=== PATIENT | female | born 1950 | race Caucasian/White ===

== ENCOUNTER → 2020-01-12 12:31 | Outpatient (CLI) | payer MEDICARE, OTHER, SELFPAY ==
--- NOTE | 2020-01-12 12:37 | CT_ITS ---
STUDY: CT MAXILLOFACIAL SINUSES REASON FOR EXAM: Female, 69 years old. Sinusitis, yash navigation protocol. RADIATION DOSAGE (If Supplied By Facility): CTDIvol = ( 33.06 ) mGy, DLP = ( 854.51 ) mGycm TECHNIQUE: The patient was scanned in a multi detector CT scanner. High resolution axial imaging was performed without the administration of intravenous contrast material. Sagittal and coronal images were reconstructed. Individualized dose optimization techniques were used for this CT. COMPARISON: None. FINDINGS: FRONTAL SINUSES: Normal aeration, without mucosal inflammatory disease. ETHMOIDAL SINUSES: Normal aeration, without mucosal inflammatory disease. MAXILLARY SINUSES: Minimal mucosal thickening at the bases of the maxillary sinuses with patent maxillary ostia and infundibulum. SPHENOIDAL SINUSES: Normal aeration, without mucosal inflammatory disease. There is patency of the bilateral maxillary infundibuli with normal uncinate processes, ethmoid bullae, and hiatus semilunaris. Normal bilateral middle turbinates. Normal bilateral inferior turbinates. Mild right nasal septal deviation, 4 mm. Small right nasal septal spur junction of the perpendicular plate and volume are impacting the base of the right inferior turbinate. There is patency of the bilateral nasal airways. The visualized osseous structures are normal. The visualized bilateral orbital contents are normal. CT/Sinus/Facial Bone IMPRESSION: Minimal mucosal thickening at the bases of the maxillary sinuses. Otherwise clear paranasal sinuses. 4 mm right nasal septal deviation with a small septal spur to the right at the level of the perpendicular plate and vomer. Electronically Signed: Bri Parsons MD at 16:01 EST , Service support ,
== END ==
PROVIDERS: Referring Provider Otolaryngology; Visit Provider Otolaryngology
DX: J32.8 Other chronic sinusitis (principal)
CPT/HCPCS: 70486

== ENCOUNTER → 2020-01-26 11:47 | Outpatient (CLI) | payer MEDICARE, OTHER, SELFPAY ==
--- NOTE | 2020-01-26 11:53 | EKG12_ITS ---
Test Reason : PRE OP Blood Pressure : / mmHG Vent. Rate : 075 BPM Atrial Rate : 075 BPM P-R Int : 154 ms QRS Dur : 090 ms QT Int : 390 ms P-R-T Axes : 071 -68 080 degrees QTc Int : 435 ms Normal sinus rhythm Left anterior fascicular block Poor R wave progression Abnormal ECG Confirmed by MELVA STARR, ENRIQUETA ([id number]), marketing editor WILDER BUSTAMANTE ([id number]) on 01/27/2020 11:18:17 AM Referred By: Anthony Tellez Confirmed By:ENRIQUETA FRYE MD
[2020-01-26 13:40] LABS: Hematocrit 45.4 % (37-47); Hemoglobin 14.5 g/dL (12.0-15.0); Mean Corp Hgb Conc 31.9 g/dL (32-36); Mean Corpuscular Hgb 30.4 pg (27.0-32.0); Mean Corpuscular Volume 95.2 fL (81-99); Mean Platelet Vol. 11.4 fl (6.2-12.0); Platelet Count 278 K/mm3 (150-450); RBC Distribution Width CV 12.3 % (11.6-14.6); RBC Distribution Width SD 43.6 fl (35.1-43.9); Red Blood Count 4.77 M/mm3 (4.2-5.4); White Blood Count 6.9 K/mm3 (4.4-11.0)
[2020-01-26 14:16] LABS: Anion Gap 5 (5-15); BUN 19 mg/dL (7-18); BUN/Creat Ratio 27.1 RATIO (10-20); Calcium,Total 9.6 mg/dL (8.5-10.1); Chloride 109 mmol/L (98-107); EST Glomerular Filtration Rate 88 mL/min (>60); Est Glom Filt Rate - Afr Amer 106 mL/min (>60); Glucose 96 mg/dL (74-106); Potassium 4.5 mmol/L (3.5-5.1); Sodium Level 142 mmol/L (136-145)
== END ==
PROVIDERS: Referring Provider Otolaryngology; Visit Provider Otolaryngology
DX: Z01.818 Encounter for other preprocedural examination (principal); Z11.59 Encounter for screening for other viral diseases
CPT/HCPCS: 36415; 80048; 85027; 87635; 93005; C9803; U0003

== ENCOUNTER → 2020-02-01 15:47 | Outpatient (CLI) | payer MEDICARE, OTHER, SELFPAY ==
--- NOTE | 2020-02-01 08:32 | NASAL_PTH ---
PATIENT: ROMA CRAWFORD LOC: [facility] U#:[id number] AGE/SX: 74/F ROOM: RE02/01/[address]: Dr. Willian Tellez MD : [id number] BED: DIS: SPEC #: [id number] RECD: 02/01/20 15:05 STATUS: SHANNON DEANN #: [id number] BE: 02/01/20 08:[address]: Willian Tellez DEPT: SURGICAL PATHOLOGY RECD BY: Vaishali Kee ENTERED: 02/02/20 09:42 SP TYPE: NASAL SPEC OTHR DR: STACY Tissues: Nasal septum, NOS Procedures: Surgery Specimen Level III HEADER OPERATION: Lysis of intranasal synechia, ethmoidectomy, maxillary antrostomy PRE-OP DIAGNOSIS: Chronic sinusitis TISSUE SUBMITTED: Sinus contents MICROSCOPIC DIAGNOSIS Sinus contents: Fragments of respiratory mucosa with mild acute and chronic inflammation and bone. SJ:ian 02/07/20 MICROSCOPIC DESCRIPTION Slides are reviewed. GROSS DESCRIPTION Received is one container labeled with the patient's name and not further designated. The specimen consists of multiple irregular fragments of solomon soft tissue mixed with fragments of bone that in aggregate measure 2 x 1 x 0.2 cm. The specimen is totally submitted in one cassette after decalcification. / SJ:ian 02/02/20 TC:3 CPT: 49720, 18182
== END ==
PROVIDERS: Visit Provider Otolaryngology
DX: J32.9 Chronic sinusitis, unspecified (principal)
CPT/HCPCS: 88304

== ENCOUNTER → 2020-03-13 15:18 | Outpatient (CLI) | payer MEDICARE, OTHER, SELFPAY | PROVIDERS: Referring Provider Otolaryngology; Visit Provider Otolaryngology | DX: J32.8 Other chronic sinusitis (principal) | CPT/HCPCS: 87070; 87077; 87186; 87205 ==

== ENCOUNTER → 2020-06-22 13:41 | Outpatient (CLI) | payer MEDICARE, OTHER, SELFPAY ==
--- NOTE | 2020-06-22 13:50 | CT_ITS ---
STUDY: CT MAXILLOFACIAL SINUSES REASON FOR EXAM: Female, 69 years old. SINUSITIS RADIATION DOSAGE (If Supplied By Facility): CTDIvol = ( 28.14 ) mGy, DLP = ( 781.37 ) mGycm TECHNIQUE: The patient was scanned in a multi detector CT scanner. High resolution axial imaging was performed without the administration of intravenous contrast material. Sagittal and coronal images were reconstructed. Individualized dose optimization techniques were used for this CT. COMPARISON: Comparison is made with prior examination dated 01/12/2020. FINDINGS: FRONTAL SINUSES: Normal aeration, without mucosal inflammatory disease. ETHMOIDAL SINUSES: Mild degree of mucosal thickening of the ethmoid sinuses. MAXILLARY SINUSES: Minimal degree of mucosal thickening of the left maxillary sinus inferiorly. SPHENOIDAL SINUSES: Normal aeration, without mucosal inflammatory disease. There is patency of the bilateral maxillary infundibuli with normal uncinate processes, ethmoid bullae, and hiatus semilunaris. There are gabriela bullosa of the bilateral turbinates. Normal bilateral inferior turbinates. Normal midline nasal septum. There is patency of the bilateral nasal airways. The visualized osseous structures are normal. The visualized bilateral orbital contents are normal. CT/Sinus/Facial Bone IMPRESSION: Mild degree mucosal thickening of the ethmoid sinuses. Electronically Signed: John Mcduffie MD at 14:15 EDT , Service support ,
== END ==
PROVIDERS: Referring Provider Otolaryngology; Visit Provider Otolaryngology
DX: J32.8 Other chronic sinusitis (principal)
CPT/HCPCS: 70486

== ENCOUNTER → 2021-09-18 | Outpatient (CLI) | payer MEDICARE, SELFPAY ==
--- NOTE | 2021-09-18 12:47 | MRI_ITS ---
STUDY: MRI RIGHT FOREFOOT WITHOUT CONTRAST REASON FOR EXAM: Right foot pain along the plantar surface of the distal metatarsals since May, sesamoid removal. TECHNIQUE: Standardized fat and water weighted pulse sequences were obtained in all 3 orthogonal planes. COMPARISON: Radiograph report 07/30/2021. FINDINGS: Normal metatarsophalangeal joint of the hallux. Normal fibular sesamoid (inversion recovery sagittal image 9). Status post resection of the tibial sesamoid. Normal interphalangeal joint of the hallux. Normal proximal and distal phalanges of the great toe. Normal medial and lateral heads of the flexor hallucis brevis tendons. Normal flexor and extensor hallucis longus tendons. Normal second through fifth metatarsophalangeal (MTP) joints. Normal interphalangeal joints of the second through fifth toes. Normal proximal, middle and distal phalanges of the second through fifth toes. Normal first through fourth intermetatarsal spaces. Normal flexor and extensor tendons of the second through fifth toes. Normal metatarsals without bone edema or stress fracture. Normal intrinsic muscles of the forefoot. There are pressure lesions in the subcutis adipose space plantar to the first metatarsophalangeal joint (T1 short axis image 21) and plantar to the fifth metatarsophalangeal joint (T1 short axis image 18). MRI/Lower Ext/No Jt/w/o IMPRESSION: Pressure lesions in the subcutis adipose space plantar to the first and fifth metatarsophalangeal joints. Status post resection of the tibial sesamoid without demonstrated abnormality of the fibular sesamoid. Electronically Signed: Ramesh Kohli MD at 9:28 EDT ,
--- NOTE | 2021-09-18 13:38 | MRI_ITS ---
STUDY: MRI LEFT FOREFOOT WITHOUT CONTRAST REASON FOR EXAM: Pain at the plantar surface of the distal metatarsals for 3 months. TECHNIQUE: Standardized fat and water weighted pulse sequences were obtained in all 3 orthogonal planes. COMPARISON: Radiograph report 07/30/2021. FINDINGS: Normal metatarsophalangeal joint of the hallux. Normal tibial and fibular sesamoids, with normal sesamoids-first metatarsal articulations without bone edema (inversion recovery short axis images 17, 18). Normal interphalangeal joint of the hallux. Normal proximal and distal phalanges of the great toe. Normal medial and lateral heads of the flexor hallucis brevis tendons. Normal flexor and extensor hallucis longus tendons. Normal second through fifth metatarsophalangeal (MTP) joints. Normal interphalangeal joints of the second through fifth toes. Normal proximal, middle and distal phalanges of the second through fifth toes. There is mild intermetatarsal bursitis of the third webspace (T2 long axis image 12). Otherwise, unremarkable intermetatarsal spaces. Normal flexor and extensor tendons of the second through fifth toes. Normal metatarsals without bone edema or stress fracture. Normal intrinsic muscles of the forefoot. There is a pressure lesion in the subcutis adipose space plantar to the first metatarsophalangeal joint (T1 short axis images 17-19). There is a pressure lesion in the subcutis adipose space at the plantar lateral aspect of the fifth metatarsophalangeal joint (T1 short axis images 15, 16). MRI/Lower Ext/No Jt/w/o IMPRESSION: Mild intermetatarsal bursitis of the third webspace. Pressure lesions in the subcutis adipose space plantar to the first and fifth metatarsophalangeal joints. Otherwise, unremarkable MRI of the left forefoot. Electronically Signed: Ramesh Kohli MD at 16:57 EDT ,
== END | disposition home or self-care (01) ==
PROVIDERS: PCP Internal Medicine; Referring Provider Podiatrist; Visit Provider Podiatrist
DX: M25.80 Other specified joint disorders, unspecified joint (principal)
CPT/HCPCS: 73718